=== PATIENT | female | born 1980 | race Caucasian/White ===

== ENCOUNTER 2018-11-25 11:20 | Emergency (ER) | payer MEDICAID ==
[~2018-11-25] VITALS: Ht 160 cm; Wt 73.5 kg
[2018-11-25 11:25] VITALS: Ht 160 cm; Wt 73.5 kg
[2018-11-25 12:10] LABS: BASOPHIL % 0.5 % (0-2); PLATELET COUNT 338 x10^3mcL (130-400)
[2018-11-25 12:13] LABS: RED CELL DISTRIBUTION WIDTH 17.6 % (11.5-14.5)
[2018-11-25 12:38] LABS: CALCIUM 8.7 mg/dL (8.5-10.1); CARBON DIOXIDE 25.2 mmol/L (21-32); CHLORIDE SERUM 107 mmol/L (98-107); CREATININE SERUM 0.6 mg/dL (0.6-1.0); GFR1 > 60 mL/min; GLUCOSE SERUM 96 mg/dL (74-106); POTASSIUM SERUM 4.7 mmol/L (3.5-5.1); SODIUM SERUM 140 mmol/L (136-145)
[2018-11-25 12:43] LABS: ALBUMIN 3.4 g/dL (3.4-5.0); ALKALINE PHOSPHATASE 70 U/L (46-116); ALT/SGPT 14 U/L (14-59); AMYLASE 59 U/L (25-115); AST/SGOT 10 U/L (15-37); BILIRUBIN TOTAL 0.33 mg/dL (0.20-1.00); LIPASE 59 IU/L (73-393)
[2018-11-25 13:28] VITALS: BP 118/64
== END 2018-11-25 13:29 | disposition home or self-care (01) ==
LOC: ED 11:20
PROVIDERS: Emergency Medicine
DX: R10.13 Epigastric pain (principal); Z98.890 Other specified postprocedural states
CPT/HCPCS: J1885; J2405; J3010; Q0092

== ENCOUNTER 2019-02-04 12:09 | Emergency (ER) | payer MEDICAID ==
[~2019-02-04] VITALS: Ht 160 cm; Wt 74.4 kg
[2019-02-04 12:22] VITALS: Ht 160 cm; Wt 74.4 kg
[2019-02-04 13:01] LABS: microscopic required? NO
[2019-02-04 13:21] LABS: BASOPHIL % 0.3 % (0-2); PLATELET COUNT 306 x10^3mcL (130-400)
[2019-02-04 13:27] LABS: CALCIUM 8.4 mg/dL (8.5-10.1); CARBON DIOXIDE 20.6 mmol/L (21-32); CHLORIDE SERUM 108 mmol/L (98-107); CREATININE SERUM 0.7 mg/dL (0.6-1.0); GFR1 > 60 mL/min; GLUCOSE SERUM 103 mg/dL (74-106); POTASSIUM SERUM 3.7 mmol/L (3.5-5.1); RED CELL DISTRIBUTION WIDTH 18.5 % (11.5-14.5); SODIUM SERUM 138 mmol/L (136-145)
[2019-02-04 13:31] LABS: ALBUMIN 3.3 g/dL (3.4-5.0); ALKALINE PHOSPHATASE 79 U/L (46-116); ALT/SGPT 26 U/L (14-59); AST/SGOT 17 U/L (15-37); BILIRUBIN DIRECT 0.09 mg/dL (0.0-0.2); BILIRUBIN TOTAL 0.31 mg/dL (0.20-1.00); LIPASE 70 IU/L (73-393); TOTAL PROTEIN, SERUM 6.9 g/dL (6.4-8.2)
[2019-02-04 14:09] LABS: UA SPECIFIC GRAVITY 1.025 (1.005-1.035); urine erythrocyte NEGATIVE (NEGATIVE)
[2019-02-04 15:15] VITALS: BP 127/80
== END 2019-02-04 15:24 | disposition home or self-care (01) ==
LOC: ED 12:09
PROVIDERS: Student in an Organized Health Care Education/Training Program
DX: K57.92 Diverticulitis of intestine, part unspecified, without perforation or abscess without bleeding (principal); Z98.890 Other specified postprocedural states
CPT/HCPCS: J2270; J2405; J7030; Q9967

== ENCOUNTER 2019-03-05 04:57 | Emergency (ER) | payer MEDICAID ==
[~2019-03-05] VITALS: Ht 160 cm; Wt 74.4 kg
[2019-03-05 05:00] VITALS: Ht 160 cm; Wt 74.4 kg
[2019-03-05 06:07] LABS: BASOPHIL % 0.4 % (0-2); PLATELET COUNT 300 x10^3mcL (130-400)
[2019-03-05 06:12] LABS: RED CELL DISTRIBUTION WIDTH 18.7 % (11.5-14.5)
[2019-03-05 06:15] LABS: CALCIUM 7.8 mg/dL (8.5-10.1); CARBON DIOXIDE 23.6 mmol/L (21-32); CHLORIDE SERUM 109 mmol/L (98-107); CREATININE SERUM 0.6 mg/dL (0.6-1.0); GFR1 > 60 mL/min; GLUCOSE SERUM 98 mg/dL (74-106); POTASSIUM SERUM 3.8 mmol/L (3.5-5.1); SODIUM SERUM 140 mmol/L (136-145)
[2019-03-05 06:20] LABS: ALKALINE PHOSPHATASE 71 U/L (46-116); ALT/SGPT 20 U/L (14-59); AST/SGOT 18 U/L (15-37); BILIRUBIN TOTAL 0.3 mg/dL (0.20-1.00); TOTAL PROTEIN, SERUM 6.8 g/dL (6.4-8.2)
[2019-03-05 06:21] LABS: ALBUMIN 3.3 g/dL (3.4-5.0)
[2019-03-05 08:00] VITALS: BP 125/64
== END 2019-03-05 08:00 | disposition home or self-care (01) ==
LOC: ED 04:57
PROVIDERS: Emergency Medicine
DX: K57.92 Diverticulitis of intestine, part unspecified, without perforation or abscess without bleeding (principal); Z98.890 Other specified postprocedural states
CPT/HCPCS: J2270; J2405; J7030

== ENCOUNTER 2019-09-03 21:44 | Emergency (ER) | payer OTHER ==
[~2019-09-03] VITALS: Ht 160 cm; Wt 72.6 kg
[2019-09-03 21:51] VITALS: Ht 160 cm; Wt 72.6 kg
[2019-09-03 23:00] VITALS: BP 116/52
== END 2019-09-03 23:00 | disposition home or self-care (01) ==
LOC: ED 21:44
DX: K57.92 Diverticulitis of intestine, part unspecified, without perforation or abscess without bleeding (principal)
CPT/HCPCS: J1885

== ENCOUNTER 2019-09-28 08:45 | Emergency (ER) | payer OTHER ==
[~2019-09-28] VITALS: Ht 160 cm; Wt 72.6 kg
[2019-09-28 08:51] VITALS: Ht 160 cm; Wt 72.6 kg
[2019-09-28 09:30] LABS: CALCIUM 8.9 mg/dL (8.5-10.1); CARBON DIOXIDE 26.7 mmol/L (21-32); CHLORIDE SERUM 105 mmol/L (98-107); CREATININE SERUM 0.7 mg/dL (0.6-1.0); GFR1 > 60 mL/min; GLUCOSE SERUM 97 mg/dL (74-106); POTASSIUM SERUM 4.4 mmol/L (3.5-5.1); SODIUM SERUM 139 mmol/L (136-145)
[2019-09-28 09:32] LABS: PLATELET COUNT 254 x10^3mcL (130-400)
[2019-09-28 09:34] LABS: ALBUMIN 3.4 g/dL (3.4-5.0); ALKALINE PHOSPHATASE 73 U/L (46-116); ALT/SGPT 20 U/L (14-59); AMYLASE 58 U/L (25-115); AST/SGOT 18 U/L (15-37); BILIRUBIN TOTAL 0.29 mg/dL (0.20-1.00); LIPASE 80 IU/L (73-393)
[2019-09-28 09:41] LABS: RED CELL DISTRIBUTION WIDTH 14.9 % (11.5-14.5)
[2019-09-28 10:17] VITALS: BP 119/76
== END 2019-09-28 10:17 | disposition home or self-care (01) ==
LOC: ED 08:45
PROVIDERS: Emergency Medicine
DX: K57.32 Diverticulitis of large intestine without perforation or abscess without bleeding (principal); Z98.890 Other specified postprocedural states
CPT/HCPCS: 36415; J1885